=== PATIENT | female | born 1955 ===

== ENCOUNTER 2018-09-12 17:58 | Emergency (ER) | payer OTHER | END 2018-09-12 22:40 | disposition home or self-care (01) | LOC: C.ER 22:40 ==

== ENCOUNTER 2018-10-20 11:55 | Outpatient (CLI) | payer OTHER | END 2018-10-20 11:56 | disposition home or self-care (01) | LOC: C.USIC 11:55 | DX: Z12.31 Encounter for screening mammogram for malignant neoplasm of breast (principal); R10.2 Pelvic and perineal pain; N94.9 Unspecified condition associated with female genital organs and menstrual cycle ==